=== PATIENT | male | born 1985 | race Caucasian/White ===

== ENCOUNTER 2018-12-30 11:20 | Emergency (ER) | payer OTHER ==
[~2018-12-30] VITALS: Ht 170.2 cm; Wt 1049.2 kg
[2018-12-30 13:40] VITALS: BP 120/79
== END 2018-12-30 13:40 | disposition home or self-care (01) ==
LOC: ED 11:20
DX: K04.7 Periapical abscess without sinus (principal)
CPT/HCPCS: J0295; J1885; Q0162